=== PATIENT | female | born 1990 | race Caucasian/White ===

== ENCOUNTER 2020-03-06 16:53 | Emergency (ER) | payer OTHER ==
[~2020-03-06] VITALS: Ht 162.6 cm; Wt 54.5 kg
[2020-03-06 16:57] VITALS: BP 105/69
[2020-03-06] MEDS ORDERED: TRAZ-257 PO (16:58)
[2020-03-06] MEDS ORDERED: CITA10TA99 PO (16:58)
[2020-03-06] MEDS ORDERED: COD30 PO (16:58)
== END 2020-03-06 17:42 | disposition home or self-care (01) ==
LOC: EMS 16:53
DX: Z03.818 Encounter for observation for suspected exposure to other biological agents ruled out (principal); M79.10 Myalgia, unspecified site
CPT/HCPCS: 99283; U0003